=== PATIENT | male | born 1990 | race Hispanic/Latino ===

== ENCOUNTER 2023-05-22 08:24 | Emergency (ER) | payer OTHER, SELFPAY ==
[2023-05-22 08:32] VITALS: BP 131/82
[2023-05-22 10:16] VITALS: BP 131/75; BP 131/80; BP 136/91; PULSE 67; PULSE 76; PULSE 96
[2023-05-22 10:29] VITALS: BMI 29.1
[2023-05-22 10:45] LABS: % Basophils 0.7 % (0-2); % Eosinophils 2.6 % (0-6); % Immature Granulocytes 0.2 % (0-0.5); % Monocytes 5.5 % (1.7-9.3); Absolute Eosinophils 0.2 10^3/uL (0-0.7); Absolute Lymphocytes 2.4 10^3/uL (1.2-3.4); Absolute Monocytes 0.3 10^3/uL (0.1-0.6); Absolute Neutrophils 2.8 10^3/uL (1.4-6.5); Hematocrit 45.1 % (39.0-52.0); Hemoglobin 16.1 g/dL (13.0-18.0); Mean Corp Hgb Conc. 35.7 g/dL (33.0-37.0); Mean Corpuscular Hgb 29.7 pg (27.0-31.0); Mean Corpuscular Volume 83.2 fL (80.0-94.0); Mean Platelet Volume 9.5 fL (7.4-10.4); Nucleated Red Blood Cells % 0 % (-); Platelet Count 229 10^3/uL (130-400); Red Blood Cell Count 5.42 10^6/uL (4.70-6.10); Red Cell Dist. Width 12.6 % (11.5-14.5); White Blood Cell Count 5.8 10^3/uL (4.8-10.8)
[2023-05-22 10:47] LABS: Urine Albumin Negative (Neg - Trace); Urine Bilirubin Negative (Negative); Urine Character Clear (Clear); Urine Color Yellow; Urine Glucose Negative (Negative); Urine Ketone Negative (Negative); Urine Leukocyte Negative (Negative); Urine Nitrite Negative (Negative); Urine Occult Blood Negative (Negative); Urine Specific Gravity 1.015 (<1.030); Urine Urobilinogen Negative (Neg - 1+)
[2023-05-22 11:01] LABS: ALT (SGPT) 37 U/L (0-50); AST (SGOT) 34 U/L (17-59); Albumin 4.5 g/dl (3.5-5.0); Alkaline Phosphatase 62 U/L (38-126); Blood Urea Nitrogen 19 mg/dl (9-20); Calcium 9.6 mg/dl (8.4-10.2); Carbon Dioxide 28 mmol/L (22-30); Chloride 100 mmol/L (98-107); Estimated Creatinine Clearance 117 ml/min; Glucose 106 mg/dl (70-99); Sodium 139 mmol/L (135-145); Total Bilirubin 0.6 mg/dl (0.2-1.3); Total Protein 8.3 g/dl (6.3-8.2); eGFR > 60.00
--- NOTE | 2023-05-22 12:57 | ED.GENMED ---
History of Present Illness
General
Chief Complaint: Dizziness
Source: patient
Exam Limitations: none and other (law firm consultant used)
Time Seen by Provider: 05/22/23 08:49
Nursing documentation reviewed up to this point in time: agreed with
Travel History
Have you had any contact with someone who has COVID-19?: No
Do you have any symptoms of coronavirus? Fever > 100 degrees, chills, cough, shortness of breath, sore throat, loss of taste or smell, muscle aches, or headache?: No
History of Present Illness
History of Present Illness:
40-year-old male with past medical history of GERD presenting to the emergency department with sensation of lightheadedness that last for few seconds intermittently when standing over the past few days. Denies any chest pain shortness breath or any
additional concerns no recent illness.
Past History
Past History
ED Past Medical History: GERD
ED Past Surgical History: None
Social History
Tobacco: Non-smoker
Alcohol: Occasional
Personal:
Living: with family
Review of Systems
Review of Systems
Allergies reviewed?: Yes
All Other Systems: ROS reviewed and negative except as documented in HPI and ROS
Phy Exam
Physical Exam
Physical Exam:
GENERAL: Alert , in no apparent distress
EYE: pupils equal and reactive
NECK: Supple, no significant adenopathy.
ENT: o/p clr, mmm.
CARDIAC: Regular rate and rhythm .
LUNGS: Clear breath sounds bilaterally, no acute respiratory distress, no wheezes/rales/rhonchi
ABDOMEN: Soft, without focal tenderness, no r/g, no cvat
NEUROLOGICAL: Alert and oriented, no focal neuro deficits
SKIN: Warm and dry, skin intact.
MUSCULOSKELETAL: No edema, well perfused.
PSYCH: Normal and appropriate interaction.
Course
Orders/Labs/Results
Orders:
Orders
05/22/23 09:35
EKG [Electrocardiogram (*1)] Urgent
Reason for Study: Vertigo / Dizzy
Orthostatic VS- Treatment ONCE
05/22/23 09:36
EKG- Treatment ONCE
05/22/23 10:35
CBC/With Diff [Complete Blood Count/With Diff] Urgent
CMP [Comprehensive Metabolic Panel] Urgent
Urinalysis Reflex To Culture Urgent
Date Specimen was Collected: 05/22/23
Time Specimen was Collected: 10:33
Abnormal Lab Results
05/22/23
10:35
Glucose 106 H mg/dl
(70-99)
Total Protein 8.3 H g/dl
(6.3-8.2)
05/22/23 10:35
05/22/23 10:35
Vital Signs
Initial and Last Documented VS:
Initial Vital Signs
Temp Pulse Resp BP Pulse Ox
98.7 F 80 17 131/82 99
05/22/23 08:32 05/22/23 08:32 05/22/23 08:32 05/22/23 08:32 05/22/23 08:32
Last Documented Vital Signs
Temp Pulse Resp BP Pulse Ox
98.7 F 80 17 131/82 99
05/22/23 08:32 05/22/23 08:32 05/22/23 08:32 05/22/23 08:32 05/22/23 08:32
MDM/Problems Addressed
MDM/Problems Addressed:
32-year-old male presenting to the emergency department today with concerns of sensation of lightheadedness over the past few days. Only when standing up last for few seconds at a time on arrival here vital signs are normal patient well-appearing
no acute distress patient had orthostatic vital signs performed which were normal patient asymptomatic throughout labs unremarkable EKG normal no signs of emergent process advised for close outpatient follow-up return precautions given.
*Critical Care Note
Total Time (30-74mins, 75-104mins- exclusive of procedures): Not Applicable
ED Attending Note
-
Portions of this chart may have been created with voice recognition software.� Occasional wrong word or��sound alike� substitutions may have occurred due to the inherent limitations of voice recognition software.
Discharge Plan
Departure
Patient Disposition: Home (Routine Discharge)
Date of Disposition: 05/22/23
Time of Disposition: 13:09
Patient with high blood pressure during this ER visit?: No
Condition: Good
Covid-19: Not Applicable
Discharge Problem:
Lightheadedness
Instructions: Dizziness, Nonvertigo, (DC)
Prescriptions:
No Action
famotidine 20 mg Tablet
20 mg PO DAILY
guaifenesin 600 mg Tablet Extended Release 12hr
600 mg PO Q12 Qty: 30 0RF
Referrals:
Joel Eaton MD [Active] -
NONE,* [Family Provider] -
Activity Restrictions/Additional Instructions:
You came to the emergency department today with concerns of lightheadedness.. Reassuring evaluation. Please closely with your primary care doctor. Return to the emergency department for any worsening, new or concerning symptoms.
Interventions
Interventions:
*General Assessment Last Done: 05/22/23 10:29
*Neglect/Abuse Screening Last Done: 05/22/23 10:29
ED- Fall Risk Assessment Last Done: 05/22/23 10:29
*ED COVID-19 Vaccine History Last Done: 05/22/23 08:41
ED- Neurological Assessment Last Done: 05/22/23 10:29
ED Swallowing Screen Last Done: 05/22/23 10:29
[2023-05-22 13:41] VITALS: BP 121/70
--- NOTE | 2023-05-22 13:58 | EDRN ---
Nurse's assessment was performed with circus roustabout assistance [facility] #[id number]
== END 2023-05-22 13:42 | disposition home or self-care (01) ==
LOC: EMR 08:24
PROVIDERS: Physician Assistant; EMERGENCY PHYSICIAN Emergency Medicine
DX: R42 Dizziness and giddiness (principal); K21.9 Gastro-esophageal reflux disease without esophagitis; Z87.01 Personal history of pneumonia (recurrent)
CPT/HCPCS: 99283; 80053; 81003; 85025; 93005